=== PATIENT | male | born 1995 | race Caucasian/White ===

== ENCOUNTER 2019-12-09 01:42 | Emergency (ER) | payer SELFPAY ==
[~2019-12-09] VITALS: Ht 167.6 cm; Wt 100.0 kg
[2019-12-09 01:55] VITALS: BP 137/74
[2019-12-09] MEDS ORDERED: LIDOCAINE HCL/PF 1% 10 MG/ML 5ML VIAL IJ ONE (02:30)
[2019-12-09] MEDS ORDERED: BACITRACIN ZINC OINT UDPKT TOP ONE (02:30)
[2019-12-09] MEDS ORDERED: TETANUS, DIPHTHERIA, PERTUSSIS VAC/PF 0.5ML (>7YR OLD) IM ONE (02:30)
[2019-12-09] MEDS ORDERED: IBUPROFEN 600MG TABLET PO ONE (02:30)
== END 2019-12-09 03:05 | disposition home or self-care (01) ==
LOC: ER 01:42
DX: S61.216A Laceration without foreign body of right little finger without damage to nail, initial encounter (principal); S61.011A Laceration without foreign body of right thumb without damage to nail, initial encounter; Y35.893A Legal intervention involving other specified means, suspect injured, initial encounter; W25.XXXA Contact with sharp glass, initial encounter; Y93.89 Activity, other specified; Y92.89 Other specified places as the place of occurrence of the external cause
CPT/HCPCS: 12001; 90471; 90715; 99283; J3490